=== PATIENT | female | born 1960 | race Caucasian/White ===

== ENCOUNTER → 2017-06-15 | Outpatient (CLI) | payer OTHER ==
--- NOTE | 2017-06-15 15:15 | RADIOLOGY IMAGING REPORT ---
FACILITY: [facility] PATIENT NAME: Monse Parker : 1960 MR: [id number] V: [id number] EXAM DATE: ORDERING PHYSICIAN: ERICH NORIEGA TECHNOLOGIST: Location: [facility] Patient: Monse Parker : 1960 Visit/Account:[id number] Date of Sevice: 06/15/2017 PELVIS INDICATION: Follow-up fractures COMPARISON: None available FINDINGS: There are subacute fractures of the right superior and inferior pubic ramus with callus formation pre sent. No significant displacement is seen. The remainder the pelvis is intact. IMPRESSION: 1. Healing subacute fractures of the right superior and inferior pubic ramus Report Dictated By: Juan David Pritchett at 06/15/2017 3:05 PM Report E-Signed By: Juan David Pritchett at 06/15/2017 3:10 PM WSN:[email or web address]
--- NOTE | 2017-06-15 15:16 | RADIOLOGY IMAGING REPORT ---
FACILITY: [facility] [place] PATIENT NAME: Monse Parker : 1960 MR: [id number] V: [id number] EXAM DATE: ORDERING PHYSICIAN: ERICH NORIEGA TECHNOLOGIST: Location: [facility] Patient: Monse Parker : 1960 Visit/Account:[id number] Date of Sevice: 06/15/2017 CERVICAL SPINE 2 OR 3 VIEW Indication: Pain., Comparison: None available. Findings: The prevertebral soft tissues are within normal limits. Vertebral body heights are well maintained. There is diffuse multilevel degenerative disc space disease present. Moderate disc space narrowing i s noted at C4-5 and C6-7. Mild anterolisthesis is noted at C3-4 and mild retrolisthesis is noted at C4-5. No fractures identified. IMPRESSION: 1. Moderate degenerative disc space disease is present at C4-5 and C5-6 with associated mild retroli sthesis of C4 with respect to C3 and C5 Report Dictated By: Juan David Pritchett at 06/15/2017 3:10 PM Report E-Signed By: Juan David Pritchett at 06/15/2017 3:12 PM WSN:[email or web address]
--- NOTE | 2017-06-15 15:17 | RADIOLOGY IMAGING REPORT ---
FACILITY: [facility] [place] PATIENT NAME: Monse Parker : 1960 MR: [id number] V: [id number] EXAM DATE: ORDERING PHYSICIAN: ERICH NORIEGA TECHNOLOGIST: Location: [facility] Patient: Monse Parker : 1960 Visit/Account:[id number] Date of Sevice: 06/15/2017 RIBS LEFT INDICATION: Follow-up fractures COMPARISON: None available FINDINGS: Heart size within normal limits. There is no focal infiltrate or lobar consolidation. There is no pneumothorax or pleural effusion. There is a subacute healing fracture of the ninth left posterolateral rib. No rib fractures are iden tified. IMPRESSION: 1. Healing subacute fracture of the posterolateral ninth left rib Report Dictated By: Juan David Pritcehtt at 06/15/2017 3:12 PM Report E-Signed By: Juan David Pritchett at 06/15/2017 3:14 PM WSN:[email or web address]
== END ==
LOC: RAD 12:55
PROVIDERS: ATTEND Family Medicine
DX: M47.892 Other spondylosis, cervical region (principal); S32.511D Fracture of superior rim of right pubis, subsequent encounter for fracture with routine healing; S32.591D Other specified fracture of right pubis, subsequent encounter for fracture with routine healing; S22.32XD Fracture of one rib, left side, subsequent encounter for fracture with routine healing
CPT/HCPCS: 71100; 72040; 72170